=== PATIENT | male | born 1945 | race Asian ===

== ENCOUNTER 2019-06-10 07:20 | Emergency (ER) | payer OTHER ==
[~2019-06-10] VITALS: Ht 177.8 cm; Wt 88.9 kg
[2019-06-10 07:28] VITALS: Ht 177.8 cm; Wt 88.9 kg
[2019-06-10 08:30] VITALS: BP 152/85
== END 2019-06-10 08:30 | disposition home or self-care (01) ==
LOC: ED 07:20
DX: L25.3 Unspecified contact dermatitis due to other chemical products (principal); I10 Essential (primary) hypertension